=== PATIENT | male | born 1940 | race Caucasian/White ===

== ENCOUNTER → 2021-11-09 | Outpatient (REF) | payer MEDICARE ==
[2021-11-09 12:36] LABS: INR 1.23; PARTIAL THROMBOPLASTIN TIME 33.5 SECONDS (25.9-37.0); PROTHROMBIN TIME 15.9 SECONDS (12.7-14.5)
[2021-11-09 12:44] LABS: APPEARANCE, URINE CLOUDY (CLEAR); BACTERIA, URINE AUTO 1+ (NEGATIVE); BILIRUBIN, URINE AUTO NEGATIVE (NEGATIVE); BLOOD, URINE BLOOD 1+ (NEGATIVE); COLOR, URINE YELLOW (YELLOW); GLUCOSE, URINE (UA) AUTO NEGATIVE (NEGATIVE); KETONE, URINE AUTO NEGATIVE (NEGATIVE); LEUKOCYTE ESTERASE, URINE AUTO 3+ (NEGATIVE); NITRITE, URINE AUTO NEGATIVE (NEGATIVE); PROTEIN, URINE AUTO 1+ mg/dL (NEGATIVE); RBC, URINE AUTO 1 /HPF (0-3); SPECIFIC GRAVITY URINE AUTO 1.006 (1.002-1.035); SQUAMOUS EPITHELIAL CELL UR AU 2 /HPF (0-6); UROBILINOGEN, URINE AUTO 0.2 mg/dL (0.0-2.0); WBC, URINE AUTO TNTC /HPF (0-3)
== END ==
LOC: M LAB REF 12:09
PROVIDERS: ATTEND Internal Medicine
DX: Z01.818 Encounter for other preprocedural examination (principal); Z79.01 Long term (current) use of anticoagulants

== ENCOUNTER → 2022-05-03 | Outpatient (REF) | payer MEDICARE | LOC: M SFHCDERM 16:55 | PROVIDERS: ATTEND Nurse Practitioner Family | DX: C44.319 Basal cell carcinoma of skin of other parts of face (principal) ==

== ENCOUNTER → 2022-06-19 | Outpatient (CLI) | payer MEDICARE | LOC: M PLAIMG 10:55 | PROVIDERS: ATTEND Internal Medicine | DX: S09.90XA Unspecified injury of head, initial encounter (principal); W01.0XXA Fall on same level from slipping, tripping and stumbling without subsequent striking against object, initial encounter; Y92.9 Unspecified place or not applicable ==

== ENCOUNTER → 2022-06-21 | Outpatient (REF) | payer MEDICARE | LOC: M SFHCDERM 14:31 | PROVIDERS: ATTEND Dermatology | DX: D04.22 Carcinoma in situ of skin of left ear and external auricular canal (principal); L57.8 Other skin changes due to chronic exposure to nonionizing radiation ==

== ENCOUNTER → 2024-07-24 | Outpatient (REF) | payer MEDICARE ==
[2024-07-24 12:15] LABS: INR 1.31; PARTIAL THROMBOPLASTIN TIME 35.9 SECONDS (24.8-34.2); PROTHROMBIN TIME 16.5 SECONDS (12.5-14.5)
[2024-07-24 12:36] LABS: PERCENT SATURATION 95.8 % (19.7-50.0)
[2024-07-24 12:37] LABS: FERRITIN 29.5 NG/ML (10.5-307.3)
== END ==
LOC: M LAB REF 11:57
PROVIDERS: ATTEND Internal Medicine
DX: Z01.818 Encounter for other preprocedural examination (principal); Z79.01 Long term (current) use of anticoagulants

== ENCOUNTER → 2024-11-18 | Outpatient (REF) | payer MEDICARE ==
[2024-11-18 13:45] LABS: IRON (FE) 62.0 UG/DL (65-175)
[2024-11-18 13:46] LABS: PERCENT SATURATION 18.8 % (19.7-50.0)
== END ==
LOC: M LAB REF 12:11
PROVIDERS: ATTEND Internal Medicine
DX: Z01.812 Encounter for preprocedural laboratory examination (principal)